=== PATIENT | male | born 2000 | race Caucasian/White ===

== ENCOUNTER 2024-01-08 14:06 | Emergency (ER) | payer OTHER, SELFPAY ==
--- NOTE | ~2024-01-08 | US_ITS ---
EXAMINATION: US scrotum doppler DATE: 01/08/2024 16:54 INDICATION: Testicular trauma. TECHNIQUE: Grayscale and Doppler ultrasound images of the testes were obtained. COMPARISON: None. FINDINGS: The right testis measures 2.5 x 2.9 x 2.7 cm. The left testis measures 2.8 x 2.1 x 2.9 cm. There is normal vascular flow to both testes. The right epididymis is normal with normal vascular gigi w. The left epididymis is normal with normal vascular flow. There is no varicocele or hydrocele. IMPRESSION: 1. Normal testes. Reviewed, dictated and finalized at location A. IMPRESSION: 1. Normal testes.
[2024-01-08 14:29] VITALS: BP 122/60; PULSE 75; RESP 15; TEMP 36.7; O2SAT 100
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
[2024-01-08] MEDS: HYDROcodone/acetaminophen (*CRX) 5-325 MG TABLET 1 TAB PO (16:10)
== END 2024-01-08 17:46 | disposition home or self-care (01) ==
PROVIDERS: Emergency Provider Emergency Medicine; PCP Family Medicine
DX: S31.31XA Laceration without foreign body of scrotum and testes, initial encounter (principal); F90.9 Attention-deficit hyperactivity disorder, unspecified type; V28.09XA Other motorcycle driver injured in noncollision transport accident in nontraffic accident, initial encounter
CPT/HCPCS: 12001; 76870; 93976; 99284; A9270